=== PATIENT | female | born 1990 | race Caucasian/White ===

== ENCOUNTER 2020-01-24 09:49 | Emergency (ER) | payer MEDICAID ==
[~2020-01-24] VITALS: Ht 160 cm; Wt 92.0 kg
[2020-01-24 10:31] VITALS: BP 124/74
== END 2020-01-24 10:33 | disposition home or self-care (01) ==
LOC: ED 10:25
DX: B34.9 Viral infection, unspecified (principal); Z20.828 Contact with and (suspected) exposure to other viral communicable diseases
CPT/HCPCS: 87635; 99283